=== PATIENT | female | born 1945 | race African-American/Black ===

== ENCOUNTER 2017-06-19 10:53 | Observation (INO) | payer MEDICARE, OTHER ==
[~2017-06-19] VITALS: Ht 162.6 cm; Wt 68.0 kg
[2017-06-19 10:56] VITALS: BP 165/70
[2017-06-19 11:43] LABS: Basophils # (auto) 0 uL; Basophils % (auto) 0.8 % (0.0-2.0); Eosinophils # (auto) 0.1 uL; Eosinophils % (auto) 2.6 % (0.0-7.0); Hematocrit 41.7 % (36.0-46.0); Lymphocytes # (auto) 1.6 uL; Lymphocytes % (auto) 44.6 % (10.0-50.0); Mean Corpuscular Hemoglobin 31.9 pg (28.0-32.0); Mean Corpuscular Hgb Conc. 33.4 g/dL (32.0-36.0); Mean Corpuscular Volume 95.3 fL (80.0-100.0); Monocytes # (auto) 0.3 uL; Monocytes % (auto) 7.7 % (0.0-12.0); Neutrophils # (auto) 1.5 uL; Neutrophils % (auto) 44.3 % (37.0-80.0); Nucleated Red Blood Cells % 0.2 %; Platelet Count (auto) 199 10^3/uL (140-450); Red Blood Cells 4.38 10^6/uL (4.0-5.20); Red Cell Distribution Width 12.6 % (11.8-14.3); White Blood Cell 3.5 10^3/uL (4.4-10.8)
[2017-06-19 11:56] LABS: Alanine Aminotransferase 63 U/L (13-56); Albumin 3.6 g/dL (3.4-5.0); Anion Gap 11 (5-15); Aspartate Aminotransferase 49 U/L (15-37); BUN/Creatinine Ratio 10.7; Blood Urea Nitrogen 9 mg/dL (7-18); Calcium 8.4 mg/dL (8.5-10.1); Carbon Dioxide 24 mmol/L (21-32); Chloride 106 mmol/L (98-107); GFR African American 86 mL/min; GFR Non-African American 71 mL/min; Glucose 130 mg/dL (74-106); Potassium 3.7 mmol/L (3.5-5.1); Sodium 141 mmol/L (136-145)
[2017-06-19 12:01] LABS: Alkaline Phosphatase 65 U/L (45-117); Bilirubin, Total 0.6 mg/dL (0.2-1.0); Total Protein 7.5 g/dL (6.4-8.2)
[2017-06-19] MEDS ORDERED: ASPirin 81 mg TAB PO ONE (12:30)
[2017-06-19] MEDS ORDERED: IOHEXOL 350 MG/ML 100ML IJ ONE (13:11)
== END 2017-06-19 12:30 | disposition left against medical advice (07) | DRG 313 ==
LOC: ER 10:53 → OVERFLOW 12:17 → ER 18:13
PROVIDERS: ADMIT Family Medicine; ATTEND Family Medicine
DX: R07.89 Other chest pain (principal); Z90.49 Acquired absence of other specified parts of digestive tract
CPT/HCPCS: 36415; 71046; 80053; 83735; 84443; 84484; 85025; 85379; 93005; 99285; G0378

== ENCOUNTER 2023-01-18 17:06 | Emergency (ER) | payer MEDICARE ==
[~2023-01-18] VITALS: Ht 165.1 cm; Wt 70.4 kg
[2023-01-18 17:16] VITALS: BP 146/87; PULSE 85; RESP 16; O2SAT 100
[2023-01-18] MEDS ORDERED: HYDROcodone-ACET 5/325MG TAB PO ONE (19:45)
[2023-01-18] MEDS ORDERED: ONDANSETRON ODT 4 MG TAB PO ONE (19:45)
[2023-01-18] MEDS ORDERED: ACE3T PO ×3 (19:49→20:30)
== END 2023-01-18 20:31 | disposition home or self-care (01) ==
LOC: ER 17:06
DX: S52.501A Unspecified fracture of the lower end of right radius, initial encounter for closed fracture (principal); S90.01XA Contusion of right ankle, initial encounter; W18.09XA Striking against other object with subsequent fall, initial encounter; Y93.89 Activity, other specified; Y92.091 Bathroom in other non-institutional residence as the place of occurrence of the external cause; Y99.8 Other external cause status
CPT/HCPCS: 29125; 73090; 73110; 73130; 73610; 99284; Q0162